=== PATIENT | female | born 1995 | race Caucasian/White ===

== ENCOUNTER 2016-10-23 12:33 | Emergency (ER) | payer OTHER ==
[2016-10-23] MEDS ORDERED: ONDANSETRON 4 MG ORAL DISINTEGRATING TAB (S0181) As Ordered ONE (14:52)
--- NOTE | 2016-10-23 15:53 | EDDOCDS ---
Physician Documentation [facility] Name: Man Rao Age: 21 yrs Sex: Female : 1995 Arrival Date: 10/23/2016 Time: 12:33 Bed PR Private MD: NO PRIMARY PHYSICIAN, . Disposition: 10/23/16 15:25 Discharged to Home/Self Care. Impression: Nausea with vomiting, unspecified, Acute pharyngitis, unspecified. - Condition is Stable. - Discharge Instructions: Nausea and Vomiting, Pharyngitis. - Prescriptions for ZOFRAN ODT 4 mg Oral - dissolve 1 tablet by ORAL route 3-4 times daily As needed do not chew, do not swallow whole; 20 tablet. - Medication Reconciliation, Local Pharmacy Hours form. - Follow up: Emergency Department; When: As needed; Reason: Worsening of conditions. [facility]; When: Call to arrange an appointment; Reason: Recheck today's complaints, Continuance of care, To establish care. - Problem is new. - Symptoms have improved. - Notes: YOUR URINE DID NOT SHOW SIGNS OF INFECTION OR TODAY. YOUR STREP TEST WAS ALSO NEGATIVE. YOU MAY HAVE A VIRAL ILLNESS THAT IS CAUSING YOUR SYMPTOMS. PLEASE FOLLOW UP WITH A PRIMARY CARE PROVIDER WITHIN THE NEXT 1-2 WEEKS. RETURN TO THE ER WITH ANY WORSENING SYMPTOMS. Historical: - Allergies: no known allergies; - Home Meds: 1. none - PMHx: none; - PSHx: Appendectomy; - Social history: Smoking status: Patient states was never smoker of tobacco. No barriers to communication noted, The patient speaks fluent Bermudian. - Family history: Not pertinent. - : The pt / caregiver states he / she is not on anticoagulants. Home medication list is obtained from the patient. - Exposure Risk Screening:: None identified. 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 3 in. (160.02 cm); Pain 5/10; 15:51 BP 105 / 58; Pulse 82; Resp 18; Temp 99.2(TE); Pulse Ox 98% on R/A; Pain 0/10; mdr 12:36 Body Mass Index 21.61 (55.34 kg, 160.02 cm) cmb MDM: 14:48 Strep Screen, Nursing ordered. dt4 14:48 UCG by Nursing ordered. dt4 14:48 Ondansetron ODT Oral Disintegrating Tablet 4 mg PO once ordered. dt4 14:49 Urinalysis Ordered. EDMS 14:49 Urine Culture Ordered. EDMS 14:57 GATS (NEGATIVE STREP SCREEN) Ordered. EDMS 15:09 Financial registration complete. Point of Care Testing: Urine : 14:56 hCG Reading: Negative; Control Reading: Positive; srm Ranges: Administered Medications: 14:54 Drug: Ondansetron ODT 4 mg [ondansetron 4 mg disintegrating tablet (1 tabs)] Route: PO; mb9 Signatures: Dispatcher [employer] Jessica Pate, ROHAN MADRIGAL [facility] Aba Melo, Reg Reg Maria C Zamora PA-C PA-C dt4 Lukas Aaron RN RN mb9 [facility]
--- NOTE | 2016-10-23 15:53 | EDDOCDS ---
Nurse's Notes [facility] Name: Man Rao Age: 21 yrs Sex: Female : 1995 Arrival Date: 10/23/2016 Time: 12:33 Bed PR1 / 25 Private MD: NO PRIMARY PHYSICIAN, . Diagnosis: Nausea with vomiting, unspecified;Acute pharyngitis, unspecified Presentation: 10/23 12:38 Presenting complaint: Patient states: "I've been sick for two weeks and I don't have [facility] health coverage so I didn't know where else to go. I've been throwing up with nausea and vomiting.". Adult Sepsis Screening: The patient does not have new or worsening altered mentation. Patient's respiratory rate is less than 22. Systolic blood pressure is greater than 100. Patient has a qSOFA score of 0- Negative Sepsis Screen. Suicide/Homicide risk assessment- the patient denies having any suicidal and/or homicidal ideations and does not present with any other emotional, behavioral or mental health complaints. Transition of care: patient was not received from another setting of care. 12:38 Acuity: BETINA Level 3 mb9 12:38 Method Of Arrival: Walkin/Carried/Asstd mb9 12:38 Status: The patient is a dependent. mb9 Triage Assessment: 12:41 General: Appears in no apparent distress, Behavior is appropriate for age, cooperative. mb9 Pain: Location: abdomen Quality of pain is described as crampy. Pt Declines HIV testing. Respiratory: Airway is patent Respiratory effort is even, unlabored. GI: Reports nausea, vomiting. 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 none - PMHx: none; - PSHx: Appendectomy; - Social history: Smoking status: Patient states was never smoker of tobacco. No barriers to communication noted, The patient speaks fluent Lebanese. - Family history: Not pertinent. - : The pt / caregiver states he / she is not on anticoagulants. Home medication list is obtained from the patient. - Exposure Risk Screening:: None identified. Screenin:50 Screening information is obtained from the patient. Fall risk: No risks identified. srm Assistance ADL's: requires no assistance with activities of daily living. Abuse/DV Screen: The patient / caregiver reports he/she is: not in a situation that causes fear, pain or injury. Nutritional screening: No deficits noted. Advance Directives: There is no active DNR order. home support is adequate. Assessment: 15:50 General: Appears in no apparent distress, Behavior is appropriate for age, cooperative. srm GI: Reports nausea. 15:50 General: PT drinking soda and eating potato chips on d/c. Neurological: No deficits srm noted. EENT: No deficits noted. Vital Signs: 12:36 BP 112 / 63; Pulse 86; Resp 16; Temp 97.7(O); Pulse Ox 98% ; Weight 55.34 kg; Height 5 cmb ft. 3 in. (160.02 cm); Pain 5/10; 15:51 BP 105 / 58; Pulse 82; Resp 18; Temp 99.2(TE); Pulse Ox 98% on R/A; Pain 0/10; mdr 12:36 Body Mass Index 21.61 (55.34 kg, 160.02 cm) cmb Vitals: 12:36 Log In Time: October 23, 2016 at 12:33. cmb 14:56 Strep Screen is obtained and tested: Negative, a GATSNEG culture is ordered in [facility] and sent. ED Course: 12:35 Patient visited by Lizzie Gagnon. cmb 12:35 NO PRIMARY PHYSICIAN, . is Private Physician. cmb 12:35 Patient moved to Waiting cmb 12:37 Patient moved to Pre RCE cmb 12:39 Triage Initiated mb9 13:42 Patient moved to Triage 1 mb9 14:28 Maria C Zamora PA-C is [facility]. dt4 14:28 Fawad Merchant MD is Attending Physician. dt4 14:28 Patient visited by Maria C Zamora PA-C. dt4 14:55 Urine Culture Sent. srm 14:55 Urinalysis Sent. srm 15:01 Patient moved to TR1 le 15:08 Patient name changed from Yorimar\\S\\\\S\\Lazar\\S\\ to Yorimar\\S\\Mykeila\\S\\Lazar. EDMS 15:25 [facility] is Referral Physician. dt4 15:39 Patient moved to PR srm 15:50 The patient / caregiver is instructed regarding the plan of care and ED course. Patient srm has correct armband on for positive identification. 15:50 No IV's were initiated during this patient's visit. No procedures done that require srm assistance. 15:52 Patient visited by Boubacar Go PCA. mdr Administered Medications: 14:54 Drug: Ondansetron ODT 4 mg [ondansetron 4 mg disintegrating tablet (1 tabs)] Route: PO; mb9 Point of Care Testing: Urine : 14:56 hCG Reading: Negative; Control Reading: Positive; [facility] Ranges: Order Results: Lab Order: Urinalysis; SPEC'M 10/23/16 14:52 Test: APPEARANCE, URINE; Value: HAZY; Range: CLEAR; Status: F Test: COLOR, URINE; Value: YELLOW; Range: YELLOW; Status: F Test: PH,URINE; Value: 6.0; Range: 5.0-9.0; Units: UNITS; Status: F Test: SPECIFIC GRAVITY URINE AUTO; Value: 1.025; Range: 1.002-1.035; Status: F Test: PROTEIN, URINE AUTO; Value: NEGATIVE; Range: NEGATIVE; Units: mg/dL; Status: F Test: GLUCOSE, URINE (UA) AUTO; Value: NEGATIVE; Range: NEGATIVE; Units: mg/dL; Status: F Test: KETONE, URINE AUTO; Value: NEGATIVE; Range: NEGATIVE; Units: mg/dL; Status: F Test: UROBILINOGEN, URINE AUTO; Value: 0.2; Range: 0.0-2.0; Units: mg/dL; Status: F Test: BILIRUBIN, URINE AUTO; Value: NEGATIVE; Range: NEGATIVE; Status: F Test: NITRITE, URINE AUTO; Value: NEGATIVE; Range: NEGATIVE; Status: F Test: LEUKOCYTE ESTERASE, URINE AUTO; Value: NEGATIVE; Range: NEGATIVE; Status: F Test: BLOOD, URINE BLOOD; Value: NEGATIVE; Range: NEGATIVE; Status: F Test: WBC, URINE AUTO; Value: 3; Range: 0-3; Units: /HPF; Status: F Test: RBC, URINE AUTO; Value: 6; Range: 0-3; Abnormal: Above high normal; Units: /HPF; Status: F Test: BACTERIA, URINE AUTO; Value: NEGATIVE; Range: NEGATIVE; Status: F Test: SQUAMOUS EPITHELIAL CELL UR AU; Value: 6; Range: 0-6; Units: /HPF; Status: F Test: MUCUS, URINE; Value: SMALL; Range: NEGATIVE; Status: F Test: HYALINE CAST, URINE AUTO; Value: 0; Range: 0-1; Units: /LPF; Status: F Test: AMORPHOUS SEDIMENT; Value: SMALL; Range: NEGATIVE; Abnormal: Above high normal; Status: F Outcome: 15:25 Discharge ordered by Provider. dt4 15:50 Discharge Assessment: Patient awake, alert and oriented x 3. No cognitive and/or srm functional deficits noted. Patient verbalized understanding of disposition instructions. patient administered narcotics - no. The following High Risk Discharge criteria are identified: None. Discharged to home ambulatory. Condition: good. Discharge instructions given to patient, Instructed on discharge instructions, follow up and referral plans. medication usage, diet, Demonstrated understanding of instructions, medications, Pt was receptive of discharge instructions/ teaching. Prescriptions given X 1. No special radiology studies were completed. Property sent home with patient. 15:52 Patient left the ED. srm Signatures: Dispatcher MedHost EDMS Jessica Dhillon RN RN srm Bee Malone, STEAMBOAT PILOT STEAMBOAT PILOTLizzie Garcia cmb Maria C Zamora, PA-C PA-C dt4 Lukas Aaron RN RN mb9 Boubacar Go, SAMANTHA CLEANER WINDOW mdr Corrections: (The following items were deleted from the chart) 12:39 12:38 Status: Patient is not a kosher dietary service supervisor or dependent. mb9 mb9 MTDD
--- NOTE | 2016-10-25 16:53 | EDDOCDS ---
Physician Documentation [facility] Name: Man Rao Age: 21 yrs Sex: Female : 1995 Arrival Date: 10/23/2016 Time: 12:33 Bed PR Private MD: NO PRIMARY PHYSICIAN, . Disposition: 10/23/16 15:25 Discharged to Home/Self Care. Impression: Nausea with vomiting, unspecified, Acute pharyngitis, unspecified. - Condition is Stable. - Discharge Instructions: Nausea and Vomiting, Pharyngitis. - Prescriptions for ZOFRAN ODT 4 mg Oral - dissolve 1 tablet by ORAL route 3-4 times daily As needed do not chew, do not swallow whole; 20 tablet. - Medication Reconciliation, Local Pharmacy Hours form. - Follow up: Emergency Department; When: As needed; Reason: Worsening of conditions. Follow [facility]: [facility]; When: Call to arrange an appointment; Reason: Recheck today's complaints, Continuance of care, To establish care. - Problem is new. - Symptoms have improved. - Notes: YOUR URINE DID NOT SHOW SIGNS OF INFECTION OR TODAY. YOUR STREP TEST WAS ALSO NEGATIVE. YOU MAY HAVE A VIRAL ILLNESS THAT IS CAUSING YOUR SYMPTOMS. PLEASE FOLLOW UP WITH A PRIMARY CARE PROVIDER WITHIN THE NEXT 1-2 WEEKS. RETURN TO THE ER WITH ANY WORSENING SYMPTOMS. Historical: - Allergies: no known allergies; - Home Meds: 1. none - PMHx: none; - PSHx: Appendectomy; - Social history: Smoking status: Patient states was never smoker of tobacco. No barriers to communication noted, The patient speaks fluent Turkmen. - Family history: Not pertinent. - : The pt / caregiver states he / she is not on anticoagulants. Home medication list is obtained from the patient. - Exposure Risk Screening:: None identified. 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 3 in. (160.02 cm); Pain 5/10; 15:51 BP 105 / 58; Pulse 82; Resp 18; Temp 99.2(TE); Pulse Ox 98% on R/A; Pain 0/10; mdr 12:36 Body Mass Index 21.61 (55.34 kg, 160.02 cm) cmb MDM: 14:48 Strep Screen, Nursing ordered. dt4 14:48 UCG by Nursing ordered. dt4 14:48 Ondansetron ODT Oral Disintegrating Tablet 4 mg PO once ordered. dt4 14:49 Urinalysis Ordered. EDMS 14:49 Urine Culture Ordered. EDMS 14:57 GATS (NEGATIVE STREP SCREEN) Ordered. EDMS 15:09 Financial registration complete. lg 10/24 10:57 T-Sheet-- Draft Copy was scanned into [employer] and attached to record. Point of Care Testing: Urine : 10/23 14:56 hCG Reading: Negative; Control Reading: Positive; srm Ranges: Administered Medications: 14:54 Drug: Ondansetron ODT 4 mg [ondansetron 4 mg disintegrating tablet (1 tabs)] Route: PO; mb9 Signatures: Dispatcher [employer]Host EDMS Jessica Dhillon, RN RN srm Bindu Alexandra, Reg Reg gb Aba Melo, Reg Reg lg Maria C Zamora, PA-C PA-C dt4 Lukas AaronRN RN mb9 The chart was reviewed and I authenticate all verbal orders and agree with the evaluation and treatment provided.Attachments: 10/24 10:57 T-Sheet-- Draft Copy Chart Complete MTDD
--- NOTE | 2016-10-25 16:53 | EDDOCDS ---
Nurse's Notes [facility] Name: Man Rao Age: 21 yrs Sex: Female : 1995 Arrival Date: 10/23/2016 Time: 12:33 Bed PR1 / 25 Private MD: NO PRIMARY PHYSICIAN, . Diagnosis: Nausea with vomiting, unspecified;Acute pharyngitis, unspecified Presentation: 10/23 12:38 Presenting complaint: Patient states: "I've been sick for two weeks and I don't have [facility] health coverage so I didn't know where else to go. I've been throwing up with nausea and vomiting.". Adult Sepsis Screening: The patient does not have new or worsening altered mentation. Patient's respiratory rate is less than 22. Systolic blood pressure is greater than 100. Patient has a qSOFA score of 0- Negative Sepsis Screen. Suicide/Homicide risk assessment- the patient denies having any suicidal and/or homicidal ideations and does not present with any other emotional, behavioral or mental health complaints. Transition of care: patient was not received from another setting of care. 12:38 Acuity: BETINA Level 3 mb9 12:38 Method Of Arrival: Walkin/Carried/Asstd mb9 12:38 Status: The patient is a dependent. mb9 Triage Assessment: 12:41 General: Appears in no apparent distress, Behavior is appropriate for age, cooperative. mb9 Pain: Location: abdomen Quality of pain is described as crampy. Pt Declines HIV testing. Respiratory: Airway is patent Respiratory effort is even, unlabored. GI: Reports nausea, vomiting. 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 none - PMHx: none; - PSHx: Appendectomy; - Social history: Smoking status: Patient states was never smoker of tobacco. No barriers to communication noted, The patient speaks fluent Bahraini. - Family history: Not pertinent. - : The pt / caregiver states he / she is not on anticoagulants. Home medication list is obtained from the patient. - Exposure Risk Screening:: None identified. Screenin:50 Screening information is obtained from the patient. Fall risk: No risks identified. srm Assistance ADL's: requires no assistance with activities of daily living. Abuse/DV Screen: The patient / caregiver reports he/she is: not in a situation that causes fear, pain or injury. Nutritional screening: No deficits noted. Advance Directives: There is no active DNR order. home support is adequate. Assessment: 15:50 General: Appears in no apparent distress, Behavior is appropriate for age, cooperative. srm GI: Reports nausea. 15:50 General: PT drinking soda and eating potato chips on d/c. Neurological: No deficits srm noted. EENT: No deficits noted. Vital Signs: 12:36 BP 112 / 63; Pulse 86; Resp 16; Temp 97.7(O); Pulse Ox 98% ; Weight 55.34 kg; Height 5 cmb ft. 3 in. (160.02 cm); Pain 5/10; 15:51 BP 105 / 58; Pulse 82; Resp 18; Temp 99.2(TE); Pulse Ox 98% on R/A; Pain 0/10; mdr 12:36 Body Mass Index 21.61 (55.34 kg, 160.02 cm) cmb Vitals: 12:36 Log In Time: October 23, 2016 at 12:33. cmb 14:56 Strep Screen is obtained and tested: Negative, a GATSNEG culture is ordered in [facility] and sent. ED Course: 12:35 Patient visited by Lizzie Gagnon. cmb 12:35 NO PRIMARY PHYSICIAN, . is Private Physician. cmb 12:35 Patient moved to Waiting cmb 12:37 Patient moved to Pre RCE cmb 12:39 Triage Initiated mb9 13:42 Patient moved to Triage 1 mb9 14:28 Maria C Zamora PA-C is [facility]. dt4 14:28 Fawad Merchant MD is Attending Physician. dt4 14:28 Patient visited by Maria C Zamora PA-C. dt4 14:55 Urine Culture Sent. srm 14:55 Urinalysis Sent. srm 15:01 Patient moved to TR1 le 15:08 Patient name changed from Yorimar\\S\\\\S\\Lazar\\S\\ to Yorimar\\S\\Mykeila\\S\\Lazar. EDMS 15:25 [facility] is Referral Physician. dt4 15:39 Patient moved to PR srm 15:50 The patient / caregiver is instructed regarding the plan of care and ED course. Patient srm has correct armband on for positive identification. 15:50 No IV's were initiated during this patient's visit. No procedures done that require srm assistance. 15:52 Patient visited by Boubacar Go PCA. mdr 10/24 10:57 T-Sheet-- Draft Copy was scanned into [facility] and attached to record. gb Administered Medications: 10/23 14:54 Drug: Ondansetron ODT 4 mg [ondansetron 4 mg disintegrating tablet (1 tabs)] Route: PO; mb9 Point of Care Testing: Urine : 14:56 hCG Reading: Negative; Control Reading: Positive; srm Ranges: Order Results: Lab Order: Urinalysis; SPEC'M 10/23/16 14:52 Test: APPEARANCE, URINE; Value: HAZY; Range: CLEAR; Status: F Test: COLOR, URINE; Value: YELLOW; Range: YELLOW; Status: F Test: PH,URINE; Value: 6.0; Range: 5.0-9.0; Units: UNITS; Status: F Test: SPECIFIC GRAVITY URINE AUTO; Value: 1.025; Range: 1.002-1.035; Status: F Test: PROTEIN, URINE AUTO; Value: NEGATIVE; Range: NEGATIVE; Units: mg/dL; Status: F Test: GLUCOSE, URINE (UA) AUTO; Value: NEGATIVE; Range: NEGATIVE; Units: mg/dL; Status: F Test: KETONE, URINE AUTO; Value: NEGATIVE; Range: NEGATIVE; Units: mg/dL; Status: F Test: UROBILINOGEN, URINE AUTO; Value: 0.2; Range: 0.0-2.0; Units: mg/dL; Status: F Test: BILIRUBIN, URINE AUTO; Value: NEGATIVE; Range: NEGATIVE; Status: F Test: NITRITE, URINE AUTO; Value: NEGATIVE; Range: NEGATIVE; Status: F Test: LEUKOCYTE ESTERASE, URINE AUTO; Value: NEGATIVE; Range: NEGATIVE; Status: F Test: BLOOD, URINE BLOOD; Value: NEGATIVE; Range: NEGATIVE; Status: F Test: WBC, URINE AUTO; Value: 3; Range: 0-3; Units: /HPF; Status: F Test: RBC, URINE AUTO; Value: 6; Range: 0-3; Abnormal: Above high normal; Units: /HPF; Status: F Test: BACTERIA, URINE AUTO; Value: NEGATIVE; Range: NEGATIVE; Status: F Test: SQUAMOUS EPITHELIAL CELL UR AU; Value: 6; Range: 0-6; Units: /HPF; Status: F Test: MUCUS, URINE; Value: SMALL; Range: NEGATIVE; Status: F Test: HYALINE CAST, URINE AUTO; Value: 0; Range: 0-1; Units: /LPF; Status: F Test: AMORPHOUS SEDIMENT; Value: SMALL; Range: NEGATIVE; Abnormal: Above high normal; Status: F Lab Order: Urine Culture; SPEC'M 10/23/16 14:52 Test: URINE CULTURE; Value: URINE CULTURE RESULT NO GROWTH CLINICAL SIGNIFICANCE 1 ORGANISM; Status: F Lab Order: GATS (NEGATIVE STREP SCREEN); SPEC'M 10/23/16 14:51 Test: GATS CULTURE (NEG STREP SCR); Value: GATS RESULT NEGATIVE FOR STREP PYOGENES (GROUP A); Status: F Outcome: 15:25 Discharge ordered by Provider. dt4 15:50 Discharge Assessment: Patient awake, alert and oriented x 3. No cognitive and/or srm functional deficits noted. Patient verbalized understanding of disposition instructions. patient administered narcotics - no. The following High Risk Discharge criteria are identified: None. Discharged to home ambulatory. Condition: good. Discharge instructions given to patient, Instructed on discharge instructions, follow up and referral plans. medication usage, diet, Demonstrated understanding of instructions, medications, Pt was receptive of discharge instructions/ teaching. Prescriptions given X 1. No special radiology studies were completed. Property sent home with patient. 15:52 Patient left the ED. srm Signatures: Dispatcher [employer] EDMS Jessica Dhillon RN RN srm Bindu Alexandra, Reg Reg gb Bee Mlaone, PRIMER CHARGING TOOL SETTER PRIMER CHARGING TOOL SETTER Lizzie Gomez Diane, PA-C PA-C dt4 Lukas Aaron RN RN [id number] Boubacar Go, SAMANTHA DIVIDER OPERATOR mdr Corrections: (The following items were deleted from the chart) 12:39 12:38 Status: Patient is not a financial services specialist or dependent. mb9 mb9 Chart Complete MTDD
--- NOTE | 2016-10-25 16:53 | EDDOCDS ---
Physician Documentation [facility] Name: Man Rao Age: 21 yrs Sex: Female : 1995 Arrival Date: 10/23/2016 Time: 12:33 Bed PR Private MD: NO PRIMARY PHYSICIAN, . Disposition: 10/23/16 15:25 Discharged to Home/Self Care. Impression: Nausea with vomiting, unspecified, Acute pharyngitis, unspecified. - Condition is Stable. - Discharge Instructions: Nausea and Vomiting, Pharyngitis. - Prescriptions for ZOFRAN ODT 4 mg Oral - dissolve 1 tablet by ORAL route 3-4 times daily As needed do not chew, do not swallow whole; 20 tablet. - Medication Reconciliation, Local Pharmacy Hours form. - Follow up: Emergency Department; When: As needed; Reason: Worsening of conditions. Follow [facility]: [facility]; When: Call to arrange an appointment; Reason: Recheck today's complaints, Continuance of care, To establish care. - Problem is new. - Symptoms have improved. - Notes: YOUR URINE DID NOT SHOW SIGNS OF INFECTION OR TODAY. YOUR STREP TEST WAS ALSO NEGATIVE. YOU MAY HAVE A VIRAL ILLNESS THAT IS CAUSING YOUR SYMPTOMS. PLEASE FOLLOW UP WITH A PRIMARY CARE PROVIDER WITHIN THE NEXT 1-2 WEEKS. RETURN TO THE ER WITH ANY WORSENING SYMPTOMS. Historical: - Allergies: no known allergies; - Home Meds: 1. none - PMHx: none; - PSHx: Appendectomy; - Social history: Smoking status: Patient states was never smoker of tobacco. No barriers to communication noted, The patient speaks fluent Wallisian. - Family history: Not pertinent. - : The pt / caregiver states he / she is not on anticoagulants. Home medication list is obtained from the patient. - Exposure Risk Screening:: None identified. 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 3 in. (160.02 cm); Pain 5/10; 15:51 BP 105 / 58; Pulse 82; Resp 18; Temp 99.2(TE); Pulse Ox 98% on R/A; Pain 0/10; mdr 12:36 Body Mass Index 21.61 (55.34 kg, 160.02 cm) cmb MDM: 14:48 Strep Screen, Nursing ordered. dt4 14:48 UCG by Nursing ordered. dt4 14:48 Ondansetron ODT Oral Disintegrating Tablet 4 mg PO once ordered. dt4 14:49 Urinalysis Ordered. EDMS 14:49 Urine Culture Ordered. EDMS 14:57 GATS (NEGATIVE STREP SCREEN) Ordered. EDMS 15:09 Financial registration complete. lg 10/24 10:57 T-Sheet-- Draft Copy was scanned into [employer] and attached to record. Point of Care Testing: Urine : 10/23 14:56 hCG Reading: Negative; Control Reading: Positive; srm Ranges: Administered Medications: 14:54 Drug: Ondansetron ODT 4 mg [ondansetron 4 mg disintegrating tablet (1 tabs)] Route: PO; mb9 Signatures: Dispatcher [employer] EDMS Jessica Dhillon, RN RN srm Bindu Alexandra, Reg Reg gb Aba Melo, Reg Reg lg Maria C Zamora, PA-C PA-C dt4 Lukas AaronRN RN mb9 The chart was reviewed and I authenticate all verbal orders and agree with the evaluation and treatment provided.Attachments: 10/24 10:57 T-Sheet-- Draft Copy Chart Complete MTDD
--- NOTE | 2016-10-26 12:16 | EDDOCDS ---
Physician Documentation [facility] Name: Man Rao Age: 21 yrs Sex: Female : 1995 Arrival Date: 10/23/2016 Time: 12:33 Bed PR Private MD: NO PRIMARY PHYSICIAN, . Disposition: 10/23/16 15:25 Discharged to Home/Self Care. Impression: Nausea with vomiting, unspecified, Acute pharyngitis, unspecified. - Condition is Stable. - Discharge Instructions: Nausea and Vomiting, Pharyngitis. - Prescriptions for ZOFRAN ODT 4 mg Oral - dissolve 1 tablet by ORAL route 3-4 times daily As needed do not chew, do not swallow whole; 20 tablet. - Medication Reconciliation, Local Pharmacy Hours form. - Follow up: Emergency Department; When: As needed; Reason: Worsening of conditions. [facility]; When: Call to arrange an appointment; Reason: Recheck today's complaints, Continuance of care, To establish care. - Problem is new. - Symptoms have improved. - Notes: YOUR URINE DID NOT SHOW SIGNS OF INFECTION OR TODAY. YOUR STREP TEST WAS ALSO NEGATIVE. YOU MAY HAVE A VIRAL ILLNESS THAT IS CAUSING YOUR SYMPTOMS. PLEASE FOLLOW UP WITH A PRIMARY CARE PROVIDER WITHIN THE NEXT 1-2 WEEKS. RETURN TO THE ER WITH ANY WORSENING SYMPTOMS. Historical: - Allergies: no known allergies; - Home Meds: 1. none - PMHx: none; - PSHx: Appendectomy; - Social history: Smoking status: Patient states was never smoker of tobacco. No barriers to communication noted, The patient speaks fluent German. - Family history: Not pertinent. - : The pt / caregiver states he / she is not on anticoagulants. Home medication list is obtained from the patient. - Exposure Risk Screening:: None identified. 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 3 in. (160.02 cm); Pain 5/10; 15:51 BP 105 / 58; Pulse 82; Resp 18; Temp 99.2(TE); Pulse Ox 98% on R/A; Pain 0/10; mdr 12:36 Body Mass Index 21.61 (55.34 kg, 160.02 cm) cmb MDM: 14:48 Strep Screen, Nursing ordered. dt4 14:48 UCG by Nursing ordered. dt4 14:48 Ondansetron ODT Oral Disintegrating Tablet 4 mg PO once ordered. dt4 14:49 Urinalysis Ordered. EDMS 14:49 Urine Culture Ordered. EDMS 14:57 GATS (NEGATIVE STREP SCREEN) Ordered. EDMS 15:09 Financial registration complete. lg 10/24 10:57 T-Sheet-- Draft Copy was scanned into [employer] and attached to record. Point of Care Testing: Urine : 10/23 14:56 hCG Reading: Negative; Control Reading: Positive; srm Ranges: Administered Medications: 14:54 Drug: Ondansetron ODT 4 mg [ondansetron 4 mg disintegrating tablet (1 tabs)] Route: PO; mb9 Signatures: Dispatcher [employer] EDMS Jessica Dhillon, RN RN srm Bindu Alexandra, Reg Reg gb Aba Melo, Reg Reg lg Maria C Zamora, PA-C PA-C dt4 Lukas AaronRN RN mb9 The chart was reviewed and I authenticate all verbal orders and agree with the evaluation and treatment provided.Attachments: 10/24 10:57 T-Sheet-- Draft Copy Chart Complete MTDD
--- NOTE | 2016-10-26 12:16 | EDDOCDS ---
Nurse's Notes [facility] Name: Man Rao Age: 21 yrs Sex: Female : 1995 Arrival Date: 10/23/2016 Time: 12:33 Bed PR1 / 25 Private MD: NO PRIMARY PHYSICIAN, . Diagnosis: Nausea with vomiting, unspecified;Acute pharyngitis, unspecified Presentation: 10/23 12:38 Presenting complaint: Patient states: "I've been sick for two weeks and I don't have [facility] coverage so I didn't know where else to go. I've been throwing up with nausea and vomiting.". Adult Sepsis Screening: The patient does not have new or worsening altered mentation. Patient's respiratory rate is less than 22. Systolic blood pressure is greater than 100. Patient has a qSOFA score of 0- Negative Sepsis Screen. Suicide/Homicide risk assessment- the patient denies having any suicidal and/or homicidal ideations and does not present with any other emotional, behavioral or mental health complaints. Transition of care: patient was not received from another setting of care. 12:38 Acuity: BETINA Level 3 mb9 12:38 Method Of Arrival: Walkin/Carried/Asstd mb9 12:38 Status: The patient is a dependent. mb9 Triage Assessment: 12:41 General: Appears in no apparent distress, Behavior is appropriate for age, cooperative. mb9 Pain: Location: abdomen Quality of pain is described as crampy. Pt Declines HIV testing. Respiratory: Airway is patent Respiratory effort is even, unlabored. GI: Reports nausea, vomiting. 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 none - PMHx: none; - PSHx: Appendectomy; - Social history: Smoking status: Patient states was never smoker of tobacco. No barriers to communication noted, The patient speaks fluent Guyanese. - Family history: Not pertinent. - : The pt / caregiver states he / she is not on anticoagulants. Home medication list is obtained from the patient. - Exposure Risk Screening:: None identified. Screenin:50 Screening information is obtained from the patient. Fall risk: No risks identified. srm Assistance ADL's: requires no assistance with activities of daily living. Abuse/DV Screen: The patient / caregiver reports he/she is: not in a situation that causes fear, pain or injury. Nutritional screening: No deficits noted. Advance Directives: There is no active DNR order. home support is adequate. Assessment: 15:50 General: Appears in no apparent distress, Behavior is appropriate for age, cooperative. srm GI: Reports nausea. 15:50 General: PT drinking soda and eating potato chips on d/c. Neurological: No deficits srm noted. EENT: No deficits noted. Vital Signs: 12:36 BP 112 / 63; Pulse 86; Resp 16; Temp 97.7(O); Pulse Ox 98% ; Weight 55.34 kg; Height 5 cmb ft. 3 in. (160.02 cm); Pain 5/10; 15:51 BP 105 / 58; Pulse 82; Resp 18; Temp 99.2(TE); Pulse Ox 98% on R/A; Pain 0/10; mdr 12:36 Body Mass Index 21.61 (55.34 kg, 160.02 cm) cmb Vitals: 12:36 Log In Time: October 23, 2016 at 12:33. cmb 14:56 Strep Screen is obtained and tested: Negative, a GATSNEG culture is ordered in [facility] and sent. ED Course: 12:35 Patient visited by Lizzie Gagnon. cmb 12:35 NO PRIMARY PHYSICIAN, . is Private Physician. cmb 12:35 Patient moved to Waiting cmb 12:37 Patient moved to Pre RCE cmb 12:39 Triage Initiated mb9 13:42 Patient moved to Triage 1 mb9 14:28 [facility] C [facility]. dt4 14:28 Fawad Merchant MD is Attending Physician. dt4 14:28 Patient visited by Maria C Zamora PA-C. dt4 14:55 Urine Culture Sent. srm 14:55 Urinalysis Sent. srm 15:01 Patient moved to TR1 le 15:08 Patient name changed from Yorimar\\S\\\\S\\Lazar\\S\\ to Yorimar\\S\\Mykeila\\S\\Lazar. EDMS 15:25 [facility] is Referral Physician. dt4 15:39 Patient moved to PR srm 15:50 The patient / caregiver is instructed regarding the plan of care and ED course. Patient srm has correct armband on for positive identification. 15:50 No IV's were initiated during this patient's visit. No procedures done that require srm assistance. 15:52 Patient visited by Boubacar Go PCA. mdr 10/24 10:57 T-Sheet-- Draft Copy was scanned into [employer] and attached to record. gb Administered Medications: 10/23 14:54 Drug: Ondansetron ODT 4 mg [ondansetron 4 mg disintegrating tablet (1 tabs)] Route: PO; mb9 Point of Care Testing: Urine : 14:56 hCG Reading: Negative; Control Reading: Positive; srm Ranges: Order Results: Lab Order: Urinalysis; SPEC'M 10/23/16 14:52 Test: APPEARANCE, URINE; Value: HAZY; Range: CLEAR; Status: F Test: COLOR, URINE; Value: YELLOW; Range: YELLOW; Status: F Test: PH,URINE; Value: 6.0; Range: 5.0-9.0; Units: UNITS; Status: F Test: SPECIFIC GRAVITY URINE AUTO; Value: 1.025; Range: 1.002-1.035; Status: F Test: PROTEIN, URINE AUTO; Value: NEGATIVE; Range: NEGATIVE; Units: mg/dL; Status: F Test: GLUCOSE, URINE (UA) AUTO; Value: NEGATIVE; Range: NEGATIVE; Units: mg/dL; Status: F Test: KETONE, URINE AUTO; Value: NEGATIVE; Range: NEGATIVE; Units: mg/dL; Status: F Test: UROBILINOGEN, URINE AUTO; Value: 0.2; Range: 0.0-2.0; Units: mg/dL; Status: F Test: BILIRUBIN, URINE AUTO; Value: NEGATIVE; Range: NEGATIVE; Status: F Test: NITRITE, URINE AUTO; Value: NEGATIVE; Range: NEGATIVE; Status: F Test: LEUKOCYTE ESTERASE, URINE AUTO; Value: NEGATIVE; Range: NEGATIVE; Status: F Test: BLOOD, URINE BLOOD; Value: NEGATIVE; Range: NEGATIVE; Status: F Test: WBC, URINE AUTO; Value: 3; Range: 0-3; Units: /HPF; Status: F Test: RBC, URINE AUTO; Value: 6; Range: 0-3; Abnormal: Above high normal; Units: /HPF; Status: F Test: BACTERIA, URINE AUTO; Value: NEGATIVE; Range: NEGATIVE; Status: F Test: SQUAMOUS EPITHELIAL CELL UR AU; Value: 6; Range: 0-6; Units: /HPF; Status: F Test: MUCUS, URINE; Value: SMALL; Range: NEGATIVE; Status: F Test: HYALINE CAST, URINE AUTO; Value: 0; Range: 0-1; Units: /LPF; Status: F Test: AMORPHOUS SEDIMENT; Value: SMALL; Range: NEGATIVE; Abnormal: Above high normal; Status: F Lab Order: Urine Culture; SPEC'M 10/23/16 14:52 Test: URINE CULTURE; Value: URINE CULTURE RESULT NO GROWTH CLINICAL SIGNIFICANCE 1 ORGANISM; Status: F Lab Order: GATS (NEGATIVE STREP SCREEN); SPEC'M 10/23/16 14:51 Test: GATS CULTURE (NEG STREP SCR); Value: GATS RESULT NEGATIVE FOR STREP PYOGENES (GROUP A); Status: F Outcome: 15:25 Discharge ordered by Provider. dt4 15:50 Discharge Assessment: Patient awake, alert and oriented x 3. No cognitive and/or srm functional deficits noted. Patient verbalized understanding of disposition instructions. patient administered narcotics - no. The following High Risk Discharge criteria are identified: None. Discharged to home ambulatory. Condition: good. Discharge instructions given to patient, Instructed on discharge instructions, follow up and referral plans. medication usage, diet, Demonstrated understanding of instructions, medications, Pt was receptive of discharge instructions/ teaching. Prescriptions given X 1. No special radiology studies were completed. Property sent home with patient. 15:52 Patient left the ED. 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 mb9 mb9 Chart Complete MTDD
--- NOTE | 2016-10-26 12:16 | EDDOCDS ---
Physician Documentation [facility] Name: Man Rao Age: 21 yrs Sex: Female : 1995 Arrival Date: 10/23/2016 Time: 12:33 Bed PR Private MD: NO PRIMARY PHYSICIAN, . Disposition: 10/23/16 15:25 Discharged to Home/Self Care. Impression: Nausea with vomiting, unspecified, Acute pharyngitis, unspecified. - Condition is Stable. - Discharge Instructions: Nausea and Vomiting, Pharyngitis. - Prescriptions for ZOFRAN ODT 4 mg Oral - dissolve 1 tablet by ORAL route 3-4 times daily As needed do not chew, do not swallow whole; 20 tablet. - Medication Reconciliation, Local Pharmacy Hours form. - Follow up: Emergency Department; When: As needed; Reason: Worsening of conditions. [facility]; When: Call to arrange an appointment; Reason: Recheck today's complaints, Continuance of care, To establish care. - Problem is new. - Symptoms have improved. - Notes: YOUR URINE DID NOT SHOW SIGNS OF INFECTION OR TODAY. YOUR STREP TEST WAS ALSO NEGATIVE. YOU MAY HAVE A VIRAL ILLNESS THAT IS CAUSING YOUR SYMPTOMS. PLEASE FOLLOW UP WITH A PRIMARY CARE PROVIDER WITHIN THE NEXT 1-2 WEEKS. RETURN TO THE ER WITH ANY WORSENING SYMPTOMS. Historical: - Allergies: no known allergies; - Home Meds: 1. none - PMHx: none; - PSHx: Appendectomy; - Social history: Smoking status: Patient states was never smoker of tobacco. No barriers to communication noted, The patient speaks fluent Namibian. - Family history: Not pertinent. - : The pt / caregiver states he / she is not on anticoagulants. Home medication list is obtained from the patient. - Exposure Risk Screening:: None identified. 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 3 in. (160.02 cm); Pain 5/10; 15:51 BP 105 / 58; Pulse 82; Resp 18; Temp 99.2(TE); Pulse Ox 98% on R/A; Pain 0/10; mdr 12:36 Body Mass Index 21.61 (55.34 kg, 160.02 cm) cmb MDM: 14:48 Strep Screen, Nursing ordered. dt4 14:48 UCG by Nursing ordered. dt4 14:48 Ondansetron ODT Oral Disintegrating Tablet 4 mg PO once ordered. dt4 14:49 Urinalysis Ordered. EDMS 14:49 Urine Culture Ordered. EDMS 14:57 GATS (NEGATIVE STREP SCREEN) Ordered. EDMS 15:09 Financial registration complete. lg 10/24 10:57 T-Sheet-- Draft Copy was scanned into [id number] and attached to record. Point of Care Testing: Urine : 10/23 14:56 hCG Reading: Negative; Control Reading: Positive; srm Ranges: Administered Medications: 14:54 Drug: Ondansetron ODT 4 mg [ondansetron 4 mg disintegrating tablet (1 tabs)] Route: PO; mb9 Signatures: Dispatcher [employer] EDMS Jessica Dhillon, RN RN srm Bindu Alexandra, Reg Reg gb Aba Melo, Reg Reg lg Maria C Zamora, PA-C PA-C dt4 Lukas AaronRN RN mb9 The chart was reviewed and I authenticate all verbal orders and agree with the evaluation and treatment provided.Attachments: 10/24 10:57 T-Sheet-- Draft Copy Chart Complete MTDD
== END 2016-10-23 15:52 | disposition home or self-care (01) ==
LOC: M ED 12:33
DX: R11.2 Nausea with vomiting, unspecified (principal); J02.9 Acute pharyngitis, unspecified

== ENCOUNTER 2016-10-27 23:12 | Emergency (ER) | payer OTHER ==
[2016-10-28] MEDS ORDERED: METOCLOPRAMIDE INJ 10MG/2ML VIAL (J2765) As Ordered ONE (00:19)
[2016-10-28 00:32] LABS: BASO % 0.5 % (0.0-1.0); EOS # 0.2 K/mm3 (0.0-0.50); EOS % 2.7 % (0.0-3.0); LARGE UNSTAINED CELL # 0.2 K/mm3 (0.0-0.4); LYMPH # 2.8 K/mm3 (1.5-6.5); LYMPH % 37.7 % (24.0-44.0); MEAN CORPUSCULAR HEMOGLOBIN 30.7 pg (27.0-33.0); MEAN CORPUSCULAR HGB CONC 35.3 g/dl (32.0-36.5); MEAN CORPUSCULAR VOLUME 86.9 fl (80.0-96.0); MONO # 0.5 K/mm3 (0.0-0.8); MONO % 6.2 % (0.0-5.0); NEUTROPHILS # 3.8 K/mm3 (1.8-7.7); NEUTROPHILS % 50.9 % (36.0-66.0); PLATELET COUNT, AUTOMATED 299 k/mm3 (150-450); WHITE BLOOD COUNT 7.5 K/mm3 (4.0-10.0)
[2016-10-28 00:45] LABS: CONTROL LINE HCG INT CTR LINE PRESENT
[2016-10-28 00:53] LABS: ALBUMIN 3.9 GM/DL (3.2-5.2); ALBUMIN/GLOBULIN RATIO 1.03 (1.00-1.93); ALKALINE PHOSPHATASE 57 U/L (45-117); ALT/SGPT 12 U/L (12-78); AMYLASE 61 U/L (25-115); ANION GAP 6 MEQ/L (8-16); AST/SGOT 20 U/L (15-37); BILIRUBIN,DIRECT < 0.1 MG/DL (0.0-0.2); BILIRUBIN,TOTAL 0.1 MG/DL (0.2-1.0); BLOOD UREA NITROGEN 15 MG/DL (7-18); CALCIUM LEVEL 8.7 MG/DL (8.5-10.1); CARBON DIOXIDE LEVEL 29 MEQ/L (21-32); CHLORIDE LEVEL 106 MEQ/L (98-107); CREATININE FOR GFR 0.67 MG/DL (0.55-1.02); GLUCOSE, FASTING 92 MG/DL (70-105); POTASSIUM SERUM 3.7 MEQ/L (3.5-5.1); SODIUM LEVEL 141 MEQ/L (136-145); TOTAL PROTEIN 7.7 GM/DL (6.4-8.2)
--- NOTE | 2016-10-28 01:28 | EDDOCDS ---
Nurse's Notes [facility] Name: Man Rao Age: 21 yrs Sex: Female : 1995 Arrival Date: 10/27/2016 Time: 23:12 Bed 7 Private MD: NO PRIMARY PHYSICIAN, . Diagnosis: Noninfective gastroenteritis and colitis, unspecified Presentation: 10/27 23:16 Presenting complaint: Patient states: Was seen here last week for Nausea and vomiting. kmg1 Abdominal cramping. Risk factors: the patient reports a small or scant amount of vaginal bleeding. Adult Sepsis Screening: The patient does not have new or worsening altered mentation. Patient's respiratory rate is less than 22. Systolic blood pressure is greater than 100. Patient has a qSOFA score of 0- Negative Sepsis Screen. Suicide/Homicide risk assessment- the patient denies having any suicidal and/or homicidal ideations and does not present with any other emotional, behavioral or mental health complaints. Status: The patient is a dependent. Transition of care: patient was not received from another setting of care. 23:16 Acuity: BETINA Level 3 km 23:16 Method Of Arrival: Walkin/Carried/Asstd km Triage Assessment: 23:19 General: Appears in no apparent distress, comfortable, Behavior is appropriate for age, kmg1 cooperative, pleasant. Pain: Location: suprapubic area and left lower quadrant Pain currently is 6 out of 10 on a pain scale. Quality of pain is described as crampy, sharp. HIV screening NA for this visit Offered previously. GI: Reports cramping, lower abdominal pain, nausea, vomiting. : Reports vaginal bleeding that is spotty. 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 Zofran (as hydrochloride) 4 mg Oral tab 1 tabs every 8 hours (Last dose: 10/26/2016) - PMHx: none; - PSHx: Appendectomy; - Social history: Smoking status: Patient states was never smoker of tobacco. No barriers to communication noted, The patient speaks fluent Occitan, Speaks appropriately for age. - Family history: Not pertinent. - : The pt / caregiver states he / she is not on anticoagulants. Home medication list is obtained from the patient. - Exposure Risk Screening:: None identified. Screenin/22 01:25 Screening information is obtained from the patient. Fall risk: No risks identified. js15 Assistance ADL's: requires no assistance with activities of daily living. Abuse/DV Screen: The patient / caregiver reports he/she is: not in a situation that causes fear, pain or injury. Nutritional screening: No deficits noted. Advance Directives: There is no active DNR order. home support is adequate. Assessment: 00:15 General: Appears in no apparent distress, Behavior is appropriate for age, cooperative. js15 Pain: Location: suprapubic area Quality of pain is described as crampy. Neurological: Level of Consciousness is awake, alert, obeys commands, Oriented to person, place, time. Respiratory: Airway is patent Respiratory effort is even, unlabored, Respiratory pattern is regular, symmetrical. GI: Abdomen is flat, Bowel sounds present X 4 quads. Abd is soft and non tender X 4 quads. Derm: Skin is pink, warm & dry. 01:25 Reassessment: Patient appears in no apparent distress at this time. Patient denies pain js15 at this time. Patient states feeling better. Patient states symptoms have improved. Pt resting on stretcher, respirations even and unlabored; skin pink, warm, dry. Vital Signs: 10/27 23:14 BP 112 / 64; Pulse 56; Resp 18 S; Temp 98.9(O); Pulse Ox 99% on R/A; Weight 55.34 kg kmg1 (R); Height 5 ft. 3 in. (160.02 cm) (R); Pain 4/10; 10/28 01:22 BP 100 / 53; Pulse 79; Resp 18; Temp 98.4(TE); Pulse Ox 99% on R/A; Pain 0/10; inessa 10/27 23:14 Body Mass Index 21.61 (55.34 kg, 160.02 cm) km Vitals: 10/27 23:14 Log In Time: October 27, 2016 at 23:14. gr2 ED Course: 23:14 Patient visited by Edda Andino. gr2 23:14 NO PRIMARY PHYSICIAN, . is Private Physician. gr2 23:14 Patient moved to Waiting gr2 23:18 Triage Initiated [facility] [place] 23:22 Patient visited by Edda Andino. gr2 23:22 Patient moved to Pre RCE gr2 23:23 Patient visited by Marilee Pat RN. kmg1 23:49 Patient moved to 7 cz 23:57 Geovanni Jordan DO is Attending Physician. cs11 23:57 Patient visited by Geovanni Jordan DO. cs11 10/28 00:15 The patient / caregiver is instructed regarding the plan of care and ED course. js15 00:22 HCG,Serum Qualitative Sent. [facility] 00:22 Lipase Sent. [facility] 00:22 Amylase Sent. [facility] 00:22 Liver Profile Sent. [facility] 00:22 MED Profile Sent. [facility] 00:22 CBC with Diff Sent. [facility] 00:22 Inserted saline lock: 20 gauge in right antecubital area and blood collected. The [facility] patient tolerated the procedure well. Labs drawn. (by ED staff). Sent per order to lab. Urine collected. Clean catch specimen. Urine specimen sent to lab. 00:23 Patient visited by Letitia Castañeda RN. [facility] 00:35 Urine Culture Sent. js15 01:23 Patient visited by Keila Gayle PCA. inessa 01:26 Discontinued IV lock intact, bleeding controlled, pressure dressing applied, No js15 redness/swelling at site. No procedures done that require assistance. Administered Medications: 00:35 Drug: NS 0.9% 1000 ml [sodium chloride 0.9 % intravenous solution] Route: IV; Rate: js15 bolus; Site: right antecubital; Follow up: IV Status: Infusion discontinued; IV Intake: 500ml js15 00:35 Drug: Metoclopramide 10 mg [metoclopramide 5 mg/mL injection solution] Route: IV; Rate: js15 40 mg/hr; Infused Over: 15 mins; Site: right antecubital; Intake: : IV: 500.00ml; Total: 500.00ml. js15 Order Results: Lab Order: CBC with Diff; SPEC'M 10/28/16 00:17 Test: WHITE BLOOD COUNT; Value: 7.5; Range: 4.0-10.0; Units: K/mm3; Status: F Test: RED BLOOD COUNT; Value: 4.44; Range: 4.00-5.40; Units: M/mm3; Status: F Test: HEMOGLOBIN; Value: 13.6; Range: 12.0-16.0; Units: g/dl; Status: F Test: HEMATOCRIT; Value: 38.6; Range: 36.0-47.0; Units: %; Status: F Test: MEAN CORPUSCULAR VOLUME; Value: 86.9; Range: 80.0-96.0; Units: fl; Status: F Test: MEAN CORPUSCULAR HEMOGLOBIN; Value: 30.7; Range: 27.0-33.0; Units: pg; Status: F Test: MEAN CORPUSCULAR HGB CONC; Value: 35.3; Range: 32.0-36.5; Units: g/dl; Status: F Test: RED CELL DISTRIBUTION WIDTH; Value: 12.0; Range: 11.5-14.5; Units: %; Status: F Test: PLATELET COUNT, AUTOMATED; Value: 299; Range: 150-450; Units: k/mm3; Status: F Test: NEUTROPHILS %; Value: 50.9; Range: 36.0-66.0; Units: %; Status: F Test: LYMPH %; Value: 37.7; Range: 24.0-44.0; Units: %; Status: F Test: MONO %; Value: 6.2; Range: 0.0-5.0; Abnormal: Above high normal; Units: %; Status: F Test: EOS %; Value: 2.7; Range: 0.0-3.0; Units: %; Status: F Test: BASO %; Value: 0.5; Range: 0.0-1.0; Units: %; Status: F Test: LARGE UNSTAINED CELL %; Value: 2.0; Range: 0.0-4.0; Units: %; Status: F Test: NEUTROPHILS #; Value: 3.8; Range: 1.8-7.7; Units: K/mm3; Status: F Test: LYMPH #; Value: 2.8; Range: 1.5-6.5; Units: K/mm3; Status: F Test: MONO #; Value: 0.5; Range: 0.0-0.8; Units: K/mm3; Status: F Test: EOS #; Value: 0.2; Range: 0.0-0.50; Units: K/mm3; Status: F Test: BASO #; Value: 0.0; Range: 0.0-0.2; Units: K/mm3; Status: F Test: LARGE UNSTAINED CELL #; Value: 0.2; Range: 0.0-0.4; Units: K/mm3; Status: F Lab Order: MED Profile; SPEC'M 10/28/16 00:17 Test: GLUCOSE, FASTING; Value: 92; Range: 70-105; Units: MG/DL; Status: F Test: BLOOD UREA NITROGEN; Value: 15; Range: 7-18; Units: MG/DL; Status: F Test: CREATININE FOR GFR; Value: 0.67; Range: 0.55-1.02; Units: MG/DL; Status: F Test: SODIUM LEVEL; Value: 141; Range: 136-145; Units: MEQ/L; Status: F Test: POTASSIUM SERUM; Value: 3.7; Range: 3.5-5.1; Units: MEQ/L; Status: F Test: CHLORIDE LEVEL; Value: 106; Range: 98-107; Units: MEQ/L; Status: F Test: CARBON DIOXIDE LEVEL; Value: 29; Range: 21-32; Units: MEQ/L; Status: F Test: ANION GAP; Value: 6; Range: 8-16; Abnormal: Below low normal; Units: MEQ/L; Status: F Test: CALCIUM LEVEL; Value: 8.7; Range: 8.5-10.1; Units: MG/DL; Status: F Lab Order: Liver Profile; SPEC'M 10/28/16 00:17 Test: AST/SGOT; Value: 20; Range: 15-37; Units: U/L; Status: F Test: ALT/SGPT; Value: 12; Range: 12-78; Units: U/L; Status: F Test: ALKALINE PHOSPHATASE; Value: 57; Range: 45-117; Units: U/L; Status: F Test: BILIRUBIN,TOTAL; Value: 0.1; Range: 0.2-1.0; Abnormal: Below low normal; Units: MG/DL; Status: F Test: BILIRUBIN,DIRECT; Value: < 0.1; Range: 0.0-0.2; Units: MG/DL; Status: F Test: TOTAL PROTEIN; Value: 7.7; Range: 6.4-8.2; Units: GM/DL; Status: F Test: ALBUMIN; Value: 3.9; Range: 3.2-5.2; Units: GM/DL; Status: F Test: ALBUMIN/GLOBULIN RATIO; Value: 1.03; Range: 1.00-1.93; Status: F Lab Order: Amylase; SPEC10/28/16: Test: AMYLASE; Value: 61; Range: 25-115; Units: U/L; Status: F Lab Order: Lipase; 10/28/16: Test: LIPASE; Value: 201; Range: 73-393; Units: U/L; Status: F Lab Order: HCG,Serum Qualitative; 10/28/16: Test: HCG, SERUM QUALITATIVE; Value: NEGATIVE; Range: NEGATIVE; Status: F Lab Order: Urinalysis; 10/28/16: Test: APPEARANCE, URINE; Value: CLEAR; Range: CLEAR; Status: F Test: COLOR, URINE; Value: YELLOW; Range: YELLOW; Status: F Test: PH,URINE; Value: 6.0; Range: 5.0-9.0; Units: UNITS; Status: F Test: SPECIFIC GRAVITY URINE AUTO; Value: 1.026; Range: 1.002-1.035; Status: F Test: PROTEIN, URINE AUTO; Value: NEGATIVE; Range: NEGATIVE; Units: mg/dL; Status: F Test: GLUCOSE, URINE (UA) AUTO; Value: NEGATIVE; Range: NEGATIVE; Units: mg/dL; Status: F Test: KETONE, URINE AUTO; Value: NEGATIVE; Range: NEGATIVE; Units: mg/dL; Status: F Test: UROBILINOGEN, URINE AUTO; Value: 0.2; Range: 0.0-2.0; Units: mg/dL; Status: F Test: BILIRUBIN, URINE AUTO; Value: NEGATIVE; Range: NEGATIVE; Status: F Test: NITRITE, URINE AUTO; Value: NEGATIVE; Range: NEGATIVE; Status: F Test: LEUKOCYTE ESTERASE, URINE AUTO; Value: NEGATIVE; Range: NEGATIVE; Status: F Test: BLOOD, URINE BLOOD; Value: NEGATIVE; Range: NEGATIVE; Status: F Test: WBC, URINE AUTO; Value: 2; Range: 0-3; Units: /HPF; Status: F Test: RBC, URINE AUTO; Value: 1; Range: 0-3; Units: /HPF; Status: F Test: BACTERIA, URINE AUTO; Value: NEGATIVE; Range: NEGATIVE; Status: F Test: SQUAMOUS EPITHELIAL CELL UR AU; Value: 2; Range: 0-6; Units: /HPF; Status: F Test: MUCUS, URINE; Value: SMALL; Range: NEGATIVE; Status: F Test: HYALINE CAST, URINE AUTO; Value: 0; Range: 0-1; Units: /LPF; Status: F Outcome: 01:14 Discharge ordered by Provider. 11 01:26 Discharge Assessment: Patient awake, alert and oriented x 3. No cognitive and/or js15 functional deficits noted. Patient verbalized understanding of disposition instructions. patient administered narcotics - no. The following High Risk Discharge criteria are identified: None. Discharged to home ambulatory, with significant other. Condition: stable. Discharge instructions given to patient, Instructed on discharge instructions, follow up and referral plans. diet, Demonstrated understanding of instructions, Pt was receptive of discharge instructions/ teaching. No special radiology studies were completed. Property sent home with patient. 01:27 Patient left the ED. js15 Signatures: Marilee Pat RN RN [facility] [place] Letitia Castañeda RN RN [facility]cp Zecher, Calvin, ROHAN MADRIGAL cz Keila Gayle, CIDER MAKER CIDER MAKER inessa Geovanni Jordan, DO DO cs11 Edda Andino gr2 Dory Corona,RN RN js15 Corrections: (The following items were deleted from the chart) 10/27 23:23 23:14 BP 112 / 64; Pulse 56bpm; Resp 18bpm; Spontaneous; Pulse Ox 99% RA; 55.34 kg kmg1 Reported; Height 5 ft. 3 in. Reported; BMI: 21.6; Pain 4/10; gr2 MTDD
--- NOTE | 2016-10-28 01:28 | EDDOCDS ---
Physician Documentation [facility] Name: Man Rao Age: 21 yrs Sex: Female : 1995 Arrival Date: 10/27/2016 Time: 23:12 Bed 7 Private MD: NO PRIMARY PHYSICIAN, . Disposition: 10/28/16 01:14 Discharged to Home/Self Care. Impression: Noninfective gastroenteritis and colitis, unspecified. - Condition is Stable. - Discharge Instructions: Clear Liquid Diet. - Medication Reconciliation, Local Pharmacy Hours form. - Follow up: Private Physician; When: Call to arrange an appointment; Reason: Recheck today's complaints. - Problem is an ongoing problem. - Symptoms are resolved. Historical: - Allergies: No known drug Allergies; - Home Meds: 1. Zofran (as hydrochloride) 4 mg Oral tab 1 tabs every 8 hours (Last dose: 10/26/2016) - PMHx: none; - PSHx: Appendectomy; - Social history: Smoking status: Patient states was never smoker of tobacco. No barriers to communication noted, The patient speaks fluent [place], Speaks appropriately for age. - Family history: Not pertinent. - : The pt / caregiver states he / she is not on anticoagulants. Home medication list is obtained from the patient. - Exposure Risk Screening:: None identified. 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 3 in. (160.02 cm) (R); Pain 4/10; 10/28 01:22 BP 100 / 53; Pulse 79; Resp 18; Temp 98.4(TE); Pulse Ox 99% on R/A; Pain 0/10; inessa 10/27 23:14 Body Mass Index 21.61 (55.34 kg, 160.02 cm) km MDM: 00:09 IV Saline Lock ordered. cs11 00:09 NS 0.9% 1000 ml IV at bolus once ordered. cs11 00:09 Metoclopramide 10 mg IV at 40 mg/hr once over 15 mins ordered. cs11 00:10 CBC with Diff Ordered. EDMS 00:10 MED Profile Ordered. EDMS 00:10 Liver Profile Ordered. EDMS 00:10 Amylase Ordered. EDMS 00:10 Lipase Ordered. EDMS 00:10 HCG,Serum Qualitative Ordered. EDMS 00:10 Urinalysis Ordered. EDMS 00:10 Urine Culture Ordered. EDMS 00:59 Financial registration complete. [facility] 01:11 CBC with Diff Reviewed. cs11 01:11 MED Profile Reviewed. cs11 01:11 Liver Profile Reviewed. cs11 01:11 Amylase Reviewed. cs11 01:11 Lipase Reviewed. cs11 01:11 HCG,Serum Qualitative Reviewed. cs11 01:11 Urinalysis Reviewed. cs11 Administered Medications: 00:35 Drug: NS 0.9% 1000 ml [sodium chloride 0.9 % intravenous solution] Route: IV; Rate: js15 bolus; Site: right antecubital; :27 Follow up: IV Status: Infusion discontinued; IV Intake: 500ml js15 00:35 Drug: Metoclopramide 10 mg [metoclopramide 5 mg/mL injection solution] Route: IV; Rate: js15 40 mg/hr; Infused Over: 15 mins; Site: right antecubital; Signatures: Dispatcher [employer] [facility] Marilee Pat, RN RN kmg1 Geovanni Jordan DO DO cs11 Janki Mcdaniel [facility] Dory Corona,ROHAN RN js15 MTDD
--- NOTE | 2016-10-30 02:29 | EDDOCDS ---
Nurse's Notes [facility] Name: Man Rao Age: 21 yrs Sex: Female : 1995 Arrival Date: 10/27/2016 Time: 23:12 Bed 7 Private MD: NO PRIMARY PHYSICIAN, . Diagnosis: Noninfective gastroenteritis and colitis, unspecified Presentation: 10/27 23:16 Presenting complaint: Patient states: Was seen here last week for Nausea and vomiting. kmg1 Abdominal cramping. Risk factors: the patient reports a small or scant amount of vaginal bleeding. Adult Sepsis Screening: The patient does not have new or worsening altered mentation. Patient's respiratory rate is less than 22. Systolic blood pressure is greater than 100. Patient has a qSOFA score of 0- Negative Sepsis Screen. Suicide/Homicide risk assessment- the patient denies having any suicidal and/or homicidal ideations and does not present with any other emotional, behavioral or mental health complaints. Status: The patient is a dependent. Transition of care: patient was not received from another setting of care. 23:16 Acuity: BETINA Level 3 km 23:16 Method Of Arrival: Walkin/Carried/Asstd km Triage Assessment: 23:19 General: Appears in no apparent distress, comfortable, Behavior is appropriate for age, kmg1 cooperative, pleasant. Pain: Location: suprapubic area and left lower quadrant Pain currently is 6 out of 10 on a pain scale. Quality of pain is described as crampy, sharp. HIV screening NA for this visit Offered previously. GI: Reports cramping, lower abdominal pain, nausea, vomiting. : Reports vaginal bleeding that is spotty. 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 Zofran (as hydrochloride) 4 mg Oral tab 1 tabs every 8 hours (Last dose: 10/26/2016) - PMHx: none; - PSHx: Appendectomy; - Social history: Smoking status: Patient states was never smoker of tobacco. No barriers to communication noted, The patient speaks fluent Estonian, Speaks appropriately for age. - Family history: Not pertinent. - : The pt / caregiver states he / she is not on anticoagulants. Home medication list is obtained from the patient. - Exposure Risk Screening:: None identified. Screenin/22 01:25 Screening information is obtained from the patient. Fall risk: No risks identified. js15 Assistance ADL's: requires no assistance with activities of daily living. Abuse/DV Screen: The patient / caregiver reports he/she is: not in a situation that causes fear, pain or injury. Nutritional screening: No deficits noted. Advance Directives: There is no active DNR order. home support is adequate. Assessment: 00:15 General: Appears in no apparent distress, Behavior is appropriate for age, cooperative. js15 Pain: Location: suprapubic area Quality of pain is described as crampy. Neurological: Level of Consciousness is awake, alert, obeys commands, Oriented to person, place, time. Respiratory: Airway is patent Respiratory effort is even, unlabored, Respiratory pattern is regular, symmetrical. GI: Abdomen is flat, Bowel sounds present X 4 quads. Abd is soft and non tender X 4 quads. Derm: Skin is pink, warm & dry. 01:25 Reassessment: Patient appears in no apparent distress at this time. Patient denies pain js15 at this time. Patient states feeling better. Patient states symptoms have improved. Pt resting on stretcher, respirations even and unlabored; skin pink, warm, dry. Vital Signs: 10/27 23:14 BP 112 / 64; Pulse 56; Resp 18 S; Temp 98.9(O); Pulse Ox 99% on R/A; Weight 55.34 kg kmg1 (R); Height 5 ft. 3 in. (160.02 cm) (R); Pain 4/10; 10/28 01:22 BP 100 / 53; Pulse 79; Resp 18; Temp 98.4(TE); Pulse Ox 99% on R/A; Pain 0/10; inessa 10/27 23:14 Body Mass Index 21.61 (55.34 kg, 160.02 cm) km Vitals: 10/27 23:14 Log In Time: October 27, 2016 at 23:14. gr2 ED Course: 23:14 Patient visited by Edda Andino. gr2 23:14 NO PRIMARY PHYSICIAN, . is Private Physician. gr2 23:14 Patient moved to Waiting gr2 23:18 Triage Initiated [facility] 23:22 Patient visited by Edda Andino. gr2 23:22 Patient moved to Pre RCE gr2 23:23 Patient visited by Marilee Pat RN. kmg1 23:49 Patient moved to 7 cz 23:57 Geovanni Jordan DO is Attending Physician. cs11 23:57 Patient visited by Geovanni Jordan DO. cs11 10/28 00:15 The patient / caregiver is instructed regarding the plan of care and ED course. js15 00:22 HCG,Serum Qualitative Sent. [facility] 00:22 Lipase Sent. [facility] 00:22 Amylase Sent. [facility] 00:22 Liver Profile Sent. [facility] 00:22 MED Profile Sent. [facility] 00:22 CBC with Diff Sent. [facility] 00:22 Inserted saline lock: 20 gauge in right antecubital area and blood collected. The [facility] patient tolerated the procedure well. Labs drawn. (by ED staff). Sent per order to lab. Urine collected. Clean catch specimen. Urine specimen sent to lab. 00:23 Patient visited by Letitia Castañeda RN. [facility] 00:35 Urine Culture Sent. js15 01:23 Patient visited by Keila Gayle PCA. niessa 01:26 Discontinued IV lock intact, bleeding controlled, pressure dressing applied, No js15 redness/swelling at site. No procedures done that require assistance. 03:13 [facility] [place] [place] Payment Agreement was scanned into [employer] and attached to record. [facility] 17:12 T-Sheet-- Draft Copy was scanned into [employer] and attached to record. klr Administered Medications: 00:35 Drug: NS 0.9% 1000 ml [sodium chloride 0.9 % intravenous solution] Route: IV; Rate: js15 bolus; Site: right antecubital; :27 Follow up: IV Status: Infusion discontinued; IV Intake: 500ml js15 00:35 Drug: Metoclopramide 10 mg [metoclopramide 5 mg/mL injection solution] Route: IV; Rate: js15 40 mg/hr; Infused Over: 15 mins; Site: right antecubital; Intake: :27 IV: 500.00ml; Total: 500.00ml. js15 Order Results: Lab Order: CBC with Diff; SPEC'M 10/28/16 00:17 Test: WHITE BLOOD COUNT; Value: 7.5; Range: 4.0-10.0; Units: K/mm3; Status: F Test: RED BLOOD COUNT; Value: 4.44; Range: 4.00-5.40; Units: M/mm3; Status: F Test: HEMOGLOBIN; Value: 13.6; Range: 12.0-16.0; Units: g/dl; Status: F Test: HEMATOCRIT; Value: 38.6; Range: 36.0-47.0; Units: %; Status: F Test: MEAN CORPUSCULAR VOLUME; Value: 86.9; Range: 80.0-96.0; Units: fl; Status: F Test: MEAN CORPUSCULAR HEMOGLOBIN; Value: 30.7; Range: 27.0-33.0; Units: pg; Status: F Test: MEAN CORPUSCULAR HGB CONC; Value: 35.3; Range: 32.0-36.5; Units: g/dl; Status: F Test: RED CELL DISTRIBUTION WIDTH; Value: 12.0; Range: 11.5-14.5; Units: %; Status: F Test: PLATELET COUNT, AUTOMATED; Value: 299; Range: 150-450; Units: k/mm3; Status: F Test: NEUTROPHILS %; Value: 50.9; Range: 36.0-66.0; Units: %; Status: F Test: LYMPH %; Value: 37.7; Range: 24.0-44.0; Units: %; Status: F Test: MONO %; Value: 6.2; Range: 0.0-5.0; Abnormal: Above high normal; Units: %; Status: F Test: EOS %; Value: 2.7; Range: 0.0-3.0; Units: %; Status: F Test: BASO %; Value: 0.5; Range: 0.0-1.0; Units: %; Status: F Test: LARGE UNSTAINED CELL %; Value: 2.0; Range: 0.0-4.0; Units: %; Status: F Test: NEUTROPHILS #; Value: 3.8; Range: 1.8-7.7; Units: K/mm3; Status: F Test: LYMPH #; Value: 2.8; Range: 1.5-6.5; Units: K/mm3; Status: F Test: MONO #; Value: 0.5; Range: 0.0-0.8; Units: K/mm3; Status: F Test: EOS #; Value: 0.2; Range: 0.0-0.50; Units: K/mm3; Status: F Test: BASO #; Value: 0.0; Range: 0.0-0.2; Units: K/mm3; Status: F Test: LARGE UNSTAINED CELL #; Value: 0.2; Range: 0.0-0.4; Units: K/mm3; Status: F Lab Order: MED Profile; SPEC' 10/28/16 00:17 Test: GLUCOSE, FASTING; Value: 92; Range: 70-105; Units: MG/DL; Status: F Test: BLOOD UREA NITROGEN; Value: 15; Range: 7-18; Units: MG/DL; Status: F Test: CREATININE FOR GFR; Value: 0.67; Range: 0.55-1.02; Units: MG/DL; Status: F Test: SODIUM LEVEL; Value: 141; Range: 136-145; Units: MEQ/L; Status: F Test: POTASSIUM SERUM; Value: 3.7; Range: 3.5-5.1; Units: MEQ/L; Status: F Test: CHLORIDE LEVEL; Value: 106; Range: 98-107; Units: MEQ/L; Status: F Test: CARBON DIOXIDE LEVEL; Value: 29; Range: 21-32; Units: MEQ/L; Status: F Test: ANION GAP; Value: 6; Range: 8-16; Abnormal: Below low normal; Units: MEQ/L; Status: F Test: CALCIUM LEVEL; Value: 8.7; Range: 8.5-10.1; Units: MG/DL; Status: F Lab Order: Liver Profile; [facility]' 10/28/16 00:17 Test: AST/SGOT; Value: 20; Range: 15-37; Units: U/L; Status: F Test: ALT/SGPT; Value: 12; Range: 12-78; Units: U/L; Status: F Test: ALKALINE PHOSPHATASE; Value: 57; Range: 45-117; Units: U/L; Status: F Test: BILIRUBIN,TOTAL; Value: 0.1; Range: 0.2-1.0; Abnormal: Below low normal; Units: MG/DL; Status: F Test: BILIRUBIN,DIRECT; Value: < 0.1; Range: 0.0-0.2; Units: MG/DL; Status: F Test: TOTAL PROTEIN; Value: 7.7; Range: 6.4-8.2; Units: GM/DL; Status: F Test: ALBUMIN; Value: 3.9; Range: 3.2-5.2; Units: GM/DL; Status: F Test: ALBUMIN/GLOBULIN RATIO; Value: 1.03; Range: 1.00-1.93; Status: F Lab Order: Amylase; SPEC' 10/28/16:17 Test: AMYLASE; Value: 61; Range: 25-115; Units: U/L; Status: F Lab Order: Lipase; SPEC' 10/28/16:17 Test: LIPASE; Value: 201; Range: 73-393; Units: U/L; Status: F Lab Order: HCG,Serum Qualitative; SPEC' 10/28/16:17 Test: HCG, SERUM QUALITATIVE; Value: NEGATIVE; Range: NEGATIVE; Status: F Lab Order: Urinalysis; SPEC 10/28/16:17 Test: APPEARANCE, URINE; Value: CLEAR; Range: CLEAR; Status: F Test: COLOR, URINE; Value: YELLOW; Range: YELLOW; Status: F Test: PH,URINE; Value: 6.0; Range: 5.0-9.0; Units: UNITS; Status: F Test: SPECIFIC GRAVITY URINE AUTO; Value: 1.026; Range: 1.002-1.035; Status: F Test: PROTEIN, URINE AUTO; Value: NEGATIVE; Range: NEGATIVE; Units: mg/dL; Status: F Test: GLUCOSE, URINE (UA) AUTO; Value: NEGATIVE; Range: NEGATIVE; Units: mg/dL; Status: F Test: KETONE, URINE AUTO; Value: NEGATIVE; Range: NEGATIVE; Units: mg/dL; Status: F Test: UROBILINOGEN, URINE AUTO; Value: 0.2; Range: 0.0-2.0; Units: mg/dL; Status: F Test: BILIRUBIN, URINE AUTO; Value: NEGATIVE; Range: NEGATIVE; Status: F Test: NITRITE, URINE AUTO; Value: NEGATIVE; Range: NEGATIVE; Status: F Test: LEUKOCYTE ESTERASE, URINE AUTO; Value: NEGATIVE; Range: NEGATIVE; Status: F Test: BLOOD, URINE BLOOD; Value: NEGATIVE; Range: NEGATIVE; Status: F Test: WBC, URINE AUTO; Value: 2; Range: 0-3; Units: /HPF; Status: F Test: RBC, URINE AUTO; Value: 1; Range: 0-3; Units: /HPF; Status: F Test: BACTERIA, URINE AUTO; Value: NEGATIVE; Range: NEGATIVE; Status: F Test: SQUAMOUS EPITHELIAL CELL UR AU; Value: 2; Range: 0-6; Units: /HPF; Status: F Test: MUCUS, URINE; Value: SMALL; Range: NEGATIVE; Status: F Test: HYALINE CAST, URINE AUTO; Value: 0; Range: 0-1; Units: /LPF; Status: F Lab Order: Urine Culture; SPEC'M 10/28/16 00:17 Test: URINE CULTURE; Value: URINE CULTURE RESULT NO GROWTH; Status: F Outcome: 01:14 Discharge ordered by Provider. cs11 01:26 Discharge Assessment: Patient awake, alert and oriented x 3. No cognitive and/or js15 functional deficits noted. Patient verbalized understanding of disposition instructions. patient administered narcotics - no. The following High Risk Discharge criteria are identified: None. Discharged to home ambulatory, with significant other. Condition: stable. Discharge instructions given to patient, Instructed on discharge instructions, follow up and referral plans. diet, Demonstrated understanding of instructions, Pt was receptive of discharge instructions/ teaching. No special radiology studies were completed. Property sent home with patient. 01:27 Patient left the ED. js15 Signatures: Marilee Pat RN RN kmg1 Letitia Castañeda RN RN mcp Zecher, Calvin, RN RN cz Keila Gayle, HYDROMETEOROLOGICAL TECHNICIAN HYDROMETEOROLOGICAL TECHNICIAN Geovanni Rod, DO DO cs11 Edda Andino gr2 Janki Mcdaniel Julia, RN RN js15 Leti Roth Corrections: (The following items were deleted from the chart) 10/27 23:23 23:14 BP 112 / 64; Pulse 56bpm; Resp 18bpm; Spontaneous; Pulse Ox 99% RA; 55.34 kg kmg1 Reported; Height 5 ft. 3 in. Reported; BMI: 21.6; Pain 4/10; gr2 Chart Complete MTDD
--- NOTE | 2016-10-30 02:29 | EDDOCDS ---
Physician Documentation [facility] Name: Man Rao Age: 21 yrs Sex: Female : 1995 Arrival Date: 10/27/2016 Time: 23:12 Bed 7 Private MD: NO PRIMARY PHYSICIAN, . Disposition: 10/28/16 01:14 Discharged to Home/Self Care. Impression: Noninfective gastroenteritis and colitis, unspecified. - Condition is Stable. - Discharge Instructions: Clear Liquid Diet. - Medication Reconciliation, Local Pharmacy Hours form. - Follow up: Private Physician; When: Call to arrange an appointment; Reason: Recheck today's complaints. - Problem is an ongoing problem. - Symptoms are resolved. Historical: - Allergies: No known drug Allergies; - Home Meds: 1. Zofran (as hydrochloride) 4 mg Oral tab 1 tabs every 8 hours (Last dose: 10/26/2016) - PMHx: none; - PSHx: Appendectomy; - Social history: Smoking status: Patient states was never smoker of tobacco. No barriers to communication noted, The patient speaks fluent Bermudian, Speaks appropriately for age. - Family history: Not pertinent. - : The pt / caregiver states he / she is not on anticoagulants. Home medication list is obtained from the patient. - Exposure Risk Screening:: None identified. 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 3 in. (160.02 cm) (R); Pain 4/10; 10/28 01:22 BP 100 / 53; Pulse 79; Resp 18; Temp 98.4(TE); Pulse Ox 99% on R/A; Pain 0/10; inessa 10/27 23:14 Body Mass Index 21.61 (55.34 kg, 160.02 cm) km MDM: 00:09 IV Saline Lock ordered. cs11 00:09 NS 0.9% 1000 ml IV at bolus once ordered. cs11 00:09 Metoclopramide 10 mg IV at 40 mg/hr once over 15 mins ordered. cs11 00:10 CBC with Diff Ordered. EDMS 00:10 MED Profile Ordered. EDMS 00:10 Liver Profile Ordered. EDMS 00:10 Amylase Ordered. EDMS 00:10 Lipase Ordered. EDMS 00:10 HCG,Serum Qualitative Ordered. EDMS 00:10 Urinalysis Ordered. EDMS 00:10 Urine Culture Ordered. EDMS 00:59 Financial registration complete. slh 01:11 CBC with Diff Reviewed. cs11 01:11 MED Profile Reviewed. cs11 01:11 Liver Profile Reviewed. cs11 01:11 Amylase Reviewed. cs11 01:11 Lipase Reviewed. cs11 01:11 HCG,Serum Qualitative Reviewed. cs11 01:11 Urinalysis Reviewed. 11 03:13 [facility] Payment Agreement was scanned into [employer] and attached to record. [facility] 17:12 T-Sheet-- Draft Copy was scanned into [employer] and attached to record. klr Administered Medications: 00:35 Drug: NS 0.9% 1000 ml [sodium chloride 0.9 % intravenous solution] Route: IV; Rate: js15 bolus; Site: right antecubital; 01:27 Follow up: IV Status: Infusion discontinued; IV Intake: 500ml js15 00:35 Drug: Metoclopramide 10 mg [metoclopramide 5 mg/mL injection solution] Route: IV; Rate: js15 40 mg/hr; Infused Over: 15 mins; Site: right antecubital; Signatures: [facility] Marilee Pat RN RN kmg1 Geovanni Jordan, DO cs11 Janki Mcdaniel [facility] Dory Corona RN RN js15 Leti Roth The chart was reviewed and I authenticate all verbal orders and agree with the evaluation and treatment provided.Attachments: 03:13 [facility] Payment Agreement [facility] 17:12 T-Sheet-- Draft Copy klr Chart Complete MTDD
--- NOTE | 2016-10-30 02:29 | EDDOCDS ---
Physician Documentation [facility] Name: Man Rao Age: 21 yrs Sex: Female : 1995 Arrival Date: 10/27/2016 Time: 23:12 Bed 7 Private MD: NO PRIMARY PHYSICIAN, . Disposition: 10/28/16 01:14 Discharged to Home/Self Care. Impression: Noninfective gastroenteritis and colitis, unspecified. - Condition is Stable. - Discharge Instructions: Clear Liquid Diet. - Medication Reconciliation, Local Pharmacy Hours form. - Follow up: Private Physician; When: Call to arrange an appointment; Reason: Recheck today's complaints. - Problem is an ongoing problem. - Symptoms are resolved. Historical: - Allergies: No known drug Allergies; - Home Meds: 1. Zofran (as hydrochloride) 4 mg Oral tab 1 tabs every 8 hours (Last dose: 10/26/2016) - PMHx: none; - PSHx: Appendectomy; - Social history: Smoking status: Patient states was never smoker of tobacco. No barriers to communication noted, The patient speaks fluent Guamanian, Speaks appropriately for age. - Family history: Not pertinent. - : The pt / caregiver states he / she is not on anticoagulants. Home medication list is obtained from the patient. - Exposure Risk Screening:: None identified. 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 3 in. (160.02 cm) (R); Pain 4/10; 10/28 01:22 BP 100 / 53; Pulse 79; Resp 18; Temp 98.4(TE); Pulse Ox 99% on R/A; Pain 0/10; inessa 10/27 23:14 Body Mass Index 21.61 (55.34 kg, 160.02 cm) km MDM: 00:09 IV Saline Lock ordered. cs11 00:09 NS 0.9% 1000 ml IV at bolus once ordered. cs11 00:09 Metoclopramide 10 mg IV at 40 mg/hr once over 15 mins ordered. cs11 00:10 CBC with Diff Ordered. EDMS 00:10 MED Profile Ordered. EDMS 00:10 Liver Profile Ordered. EDMS 00:10 Amylase Ordered. EDMS 00:10 Lipase Ordered. EDMS 00:10 HCG,Serum Qualitative Ordered. EDMS 00:10 Urinalysis Ordered. EDMS 00:10 Urine Culture Ordered. EDMS 00:59 Financial registration complete. slh 01:11 CBC with Diff Reviewed. cs11 01:11 MED Profile Reviewed. cs11 01:11 Liver Profile Reviewed. cs11 01:11 Amylase Reviewed. cs11 01:11 Lipase Reviewed. cs11 01:11 HCG,Serum Qualitative Reviewed. cs11 01:11 Urinalysis Reviewed. 11 03:13 [facility] Payment Agreement was scanned into [employer] and attached to record. [facility] 17:12 T-Sheet-- Draft Copy was scanned into [employer] and attached to record. klr Administered Medications: 00:35 Drug: NS 0.9% 1000 ml [sodium chloride 0.9 % intravenous solution] Route: IV; Rate: js15 bolus; Site: right antecubital; 01:27 Follow up: IV Status: Infusion discontinued; IV Intake: 500ml js15 00:35 Drug: Metoclopramide 10 mg [metoclopramide 5 mg/mL injection solution] Route: IV; Rate: js15 40 mg/hr; Infused Over: 15 mins; Site: right antecubital; Signatures: [facility] Marilee Pat RN RN kmg1 Geovanni Jordan, DO cs11 Janki Mcdaniel [facility] Dory Corona RN RN js15 Leti Roth The chart was reviewed and I authenticate all verbal orders and agree with the evaluation and treatment provided.Attachments: 03:13 [facility] Payment Agreement [facility] 17:12 T-Sheet-- Draft Copy klr Chart Complete MTDD
== END 2016-10-28 01:27 | disposition home or self-care (01) ==
LOC: M ED 23:12
DX: K52.9 Noninfective gastroenteritis and colitis, unspecified (principal)
CPT/HCPCS: 36415; 80048; 80076; 81001; 82150; 83690; 84703; 85025; 87086; 96361; 96374; 99284; J2765

== ENCOUNTER → 2017-04-01 | Outpatient (REF) | payer OTHER | LOC: M SFHCLERA 15:05 | PROVIDERS: ATTEND Nurse Practitioner Family | DX: R11.0 Nausea (principal) ==

== ENCOUNTER 2017-05-05 20:06 | Emergency (ER) | payer OTHER ==
[~2017-05-05] VITALS: Ht 160 cm; Wt 59.1 kg
[2017-05-05] MEDS ORDERED: KEFL500C17 PO (20:12)
[2017-05-05 20:59] LABS: MEAN CORPUSCULAR HEMOGLOBIN 29.3 pg (27.0-33.0); MEAN CORPUSCULAR HGB CONC 33.3 g/dl (32.0-36.5); MEAN CORPUSCULAR VOLUME 87.8 fl (80.0-96.0); WHITE BLOOD COUNT 8.1 K/mm3 (4.0-10.0)
[2017-05-05 21:15] LABS: ANION GAP 7 MEQ/L (8-16); BLOOD UREA NITROGEN 13 MG/DL (7-18); CALCIUM LEVEL 9.2 MG/DL (8.5-10.1); CARBON DIOXIDE LEVEL 28 MEQ/L (21-32); CHLORIDE LEVEL 106 MEQ/L (98-107); CREATININE FOR GFR 0.71 MG/DL (0.55-1.02); GLUCOSE, FASTING 102 MG/DL (70-105); POTASSIUM SERUM 3.8 MEQ/L (3.5-5.1); SODIUM LEVEL 141 MEQ/L (136-145)
[2017-05-05 21:35] LABS: CONTROL LINE HCG INT CTR LINE PRESENT
[2017-05-05 21:46] VITALS: BP 103/61
[2017-08-11] MEDS ORDERED: ZOFR4TAB3 PO (13:11)
[2017-08-11] MEDS ORDERED: PRIL20CA9 PO (13:11)
== END 2017-05-05 21:46 | disposition home or self-care (01) ==
LOC: M ED 20:06
DX: R11.0 Nausea (principal)

== ENCOUNTER → 2017-05-28 | Outpatient (REF) | payer OTHER ==
[~2017-05-28] MED LIST: BIOTIN GUMMIES PO; KEFL500C17 PO; PRIL20CA9 PO; REGL10TA6 PO; TRETPOW; ZOFR4TAB3 PO
== END ==
LOC: M LAB REF 12:26
PROVIDERS: ATTEND Physician Assistant
DX: R30.0 Dysuria (principal)

== ENCOUNTER 2017-06-10 21:19 | Emergency (ER) | payer OTHER ==
[~2017-06-10] VITALS: Ht 160 cm; Wt 59.1 kg
[~2017-06-10 21:19] MED LIST changes: -BIOTIN GUMMIES PO; -PRIL20CA9 PO; -REGL10TA6 PO; -TRETPOW; -ZOFR4TAB3 PO
[2017-06-10] MEDS ORDERED: TRETPOW (21:39)
[2017-06-10 23:52] VITALS: BP 89/62
[2017-08-11] MEDS ORDERED: PRIL20CA9 PO (13:11)
[2017-08-11] MEDS ORDERED: ZOFR4TAB3 PO (13:11)
== END 2017-06-11 00:21 | disposition home or self-care (01) ==
LOC: M ED 21:19
DX: N93.9 Abnormal uterine and vaginal bleeding, unspecified (principal)

== ENCOUNTER 2017-07-09 17:24 | Emergency (ER) | payer OTHER ==
[~2017-07-09] VITALS: Ht 160 cm; Wt 59.1 kg
[~2017-07-09 17:24] MED LIST changes: +TRETPOW
[2017-07-09] MEDS ORDERED: BIOTIN GUMMIES PO (17:33)
[2017-07-09 19:32] LABS: BASO # 0.1 10^3/uL (0.0-0.2); BASO % 0.5 % (0.0-1.0); EOS # 0.2 10^3/uL (0.0-0.50); EOS % 1.6 % (0.0-3.0); IMMATURE GRANULOCYTE % 0.2 % (0-0); LYMPH # 3.9 10^3/uL (1.5-6.5); LYMPH % 31.1 % (24.0-44.0); MEAN CORPUSCULAR HEMOGLOBIN 29.3 pg (27.0-33.0); MEAN CORPUSCULAR HGB CONC 34.1 g/dl (32.0-36.5); MEAN CORPUSCULAR VOLUME 86.1 fl (80.0-96.0); MONO # 0.8 10^3/uL (0.0-0.8); NEUTROPHILS # 7.5 10^3/uL (1.8-7.7); NEUTROPHILS % 60.6 % (36.0-66.0); PLATELET COUNT, AUTOMATED 328 10^3/uL (150-450); WHITE BLOOD COUNT 12.4 10^3/uL (4.0-10.0)
[2017-07-09 20:04] LABS: ANION GAP 4 MEQ/L (8-16); BLOOD UREA NITROGEN 15 MG/DL (7-18); CARBON DIOXIDE LEVEL 30 MEQ/L (21-32); CHLORIDE LEVEL 104 MEQ/L (98-107); CREATININE FOR GFR 0.78 MG/DL (0.55-1.02); GLUCOSE, FASTING 97 MG/DL (70-105); HCG, SERUM QUANTITATIVE 12 MIU/ML; POTASSIUM SERUM 4.1 MEQ/L (3.5-5.1); SODIUM LEVEL 138 MEQ/L (136-145)
--- NOTE | 2017-07-09 20:40 | REPUSA ---
Clinical history: Pain. Early . Findings: Real-time transabdominal and transvaginal ultrasound images of the pelvis were obtained. An anteverted uterus is noted, measuring 8.5 x 5.6 x 6.3 cm. The uterus demonstrates normal echotexture and echogenicity. The endometrial stripe measures 13 mm and is within normal limits. The right ovary measures 3.7 x 1.8 x 2.5 cm. The left ovary measures 3.0 x 1.5 x 2.2 cm. No adnexal masses are seen. Color Doppler flow is seen within both ovaries. There is no evidence of free fluid. Impression: Unremarkable ultrasound examination of the pelvis. Now intrauterine identified. Differential diagnosis includes early , missed , or ectopic . Follow-up wi th serial serum beta hCG levels is recommended for further evaluation.
[2017-07-09] MEDS ORDERED: REGL10TA6 PO (20:44)
[2017-07-09 20:55] VITALS: BP 122/60
[2017-08-11] MEDS ORDERED: PRIL20CA9 PO (13:11)
[2017-08-11] MEDS ORDERED: ZOFR4TAB3 PO (13:11)
== END 2017-07-09 20:58 | disposition home or self-care (01) ==
LOC: M ED 17:24
DX: O99.89 Other specified diseases and conditions complicating pregnancy, childbirth and the puerperium (principal); R10.2 Pelvic and perineal pain; Z3A.00 Weeks of gestation of pregnancy not specified

== ENCOUNTER 2017-07-10 13:43 | Emergency (ER) | payer OTHER ==
[~2017-07-10] VITALS: Ht 160 cm; Wt 59.1 kg
[~2017-07-10 13:43] MED LIST changes: +BIOTIN GUMMIES PO; +REGL10TA6 PO
[2017-07-10 14:26] VITALS: BP 133/58
[2017-08-11] MEDS ORDERED: ZOFR4TAB3 PO (13:11)
[2017-08-11] MEDS ORDERED: PRIL20CA9 PO (13:11)
== END 2017-07-10 18:21 | disposition left against medical advice (07) ==
LOC: M ED 13:43
DX: O20.9 Hemorrhage in early pregnancy, unspecified (principal); Z53.29 Procedure and treatment not carried out because of patient's decision for other reasons

== ENCOUNTER → 2017-07-11 | Outpatient (CLI) | payer OTHER ==
[~2017-07-11] MED LIST changes: +PRIL20CA9 PO; +ZOFR4TAB3 PO
[2017-07-11 17:20] LABS: BASO # 0.1 10^3/uL (0.0-0.2); BASO % 0.5 % (0.0-1.0); EOS # 0.1 10^3/uL (0.0-0.50); EOS % 1.1 % (0.0-3.0); IMMATURE GRANULOCYTE % 0.5 % (0-0); LYMPH % 27.6 % (24.0-44.0); MEAN CORPUSCULAR VOLUME 87.8 fl (80.0-96.0); MONO # 0.8 10^3/uL (0.0-0.8); MONO % 7.4 % (0.0-5.0); NEUTROPHILS # 6.8 10^3/uL (1.8-7.7); NEUTROPHILS % 62.9 % (36.0-66.0); PLATELET COUNT, AUTOMATED 334 10^3/uL (150-450); RED CELL DISTRIBUTION WIDTH 12.2 % (11.5-14.5); WHITE BLOOD COUNT 10.8 10^3/uL (4.0-10.0)
[2017-07-11 17:30] LABS: ADD MORPHOLOGY? NO
[2017-07-11 17:56] LABS: ANION GAP 11 MEQ/L (8-16); BLOOD UREA NITROGEN 12 MG/DL (7-18); CALCIUM LEVEL 8.6 MG/DL (8.5-10.1); CARBON DIOXIDE LEVEL 25 MEQ/L (21-32); CHLORIDE LEVEL 104 MEQ/L (98-107); CREATININE FOR GFR 0.64 MG/DL (0.55-1.02); GLUCOSE, FASTING 81 MG/DL (70-105); HCG, SERUM QUANTITATIVE 7 MIU/ML; SODIUM LEVEL 140 MEQ/L (136-145)
[2017-07-11 19:39] LABS: MICROSCOPIC INDICATED? MAN NO (NO)
== END ==
LOC: M WUC 11:00
PROVIDERS: ATTEND Physician Assistant
DX: O00.01 Abdominal pregnancy with intrauterine pregnancy (principal); R10.30 Lower abdominal pain, unspecified; Z3A.00 Weeks of gestation of pregnancy not specified

== ENCOUNTER 2017-10-15 18:27 | Emergency (ER) | payer OTHER ==
[2017-10-15] MEDS: DICYCLOMINE INJ 20MG/2ML (J0500) IM (20:45)
[2017-10-15 21:03] LABS: BASO % 0.5 % (0.0-1.0); EOS # 0.2 10^3/uL (0.0-0.50); EOS % 2.4 % (0.0-3.0); HEMOGLOBIN 13.4 g/dl (12.0-16.0); IMMATURE GRANULOCYTE % 0.4 % (0-0); LYMPH # 2.8 10^3/uL (1.5-6.5); MEAN CORPUSCULAR HEMOGLOBIN 29.1 pg (27.0-33.0); MEAN CORPUSCULAR HGB CONC 33.5 g/dl (32.0-36.5); MONO # 0.8 10^3/uL (0.0-0.8); MONO % 9.1 % (0.0-5.0); NEUTROPHILS # 4.6 10^3/uL (1.8-7.7); NEUTROPHILS % 54.6 % (36.0-66.0); PLATELET COUNT, AUTOMATED 317 10^3/uL (150-450); RED CELL DISTRIBUTION WIDTH 11.6 % (11.5-14.5); WHITE BLOOD COUNT 8.4 10^3/uL (4.0-10.0)
[2017-10-15 21:14] LABS: ANION GAP 4 MEQ/L (8-16); BLOOD UREA NITROGEN 16 MG/DL (7-18); CALCIUM LEVEL 9.4 MG/DL (8.5-10.1); CARBON DIOXIDE LEVEL 31 MEQ/L (21-32); CHLORIDE LEVEL 105 MEQ/L (98-107); CREATININE FOR GFR 0.77 MG/DL (0.55-1.02); GLOMERULAR FILTRATION RATE > 60.0 (>60); GLUCOSE, FASTING 86 MG/DL (70-105); SODIUM LEVEL 140 MEQ/L (136-145)
[2017-10-15 21:29] LABS: KETONE, URINE AUTO RFX TRACE mg/dL (NEGATIVE); LEUKOCYTE ESTERASE UR AUTO RFX NEGATIVE (NEGATIVE); MUCUS, URINE RFX SMALL (NEGATIVE); NITRITE, URINE AUTO RFX NEGATIVE (NEGATIVE); RBC, URINE AUTO RFX 2 /HPF (0-3); SPECIFIC GRAVITY UR AUTO RFX 1.031 (1.002-1.035); SQUAM EPITHELIAL CELL UR AURFX 2 /HPF (0-6); WBC, URINE AUTO RFX 1 /HPF (0-3)
[2017-10-15] MEDS: DICYCLOMINE 10 MG CAP PO (21:30)
== END 2017-10-15 22:19 | disposition home or self-care (01) ==
LOC: M ED 18:27
DX: K52.9 Noninfective gastroenteritis and colitis, unspecified (principal)
CPT/HCPCS: 80048

== ENCOUNTER → 2017-10-25 | Outpatient (CLI) | payer OTHER | LOC: M LRY 17:21 | DX: M25.512 Pain in left shoulder (principal); M54.2 Cervicalgia ==

== ENCOUNTER → 2018-01-01 | Outpatient (REF) | payer OTHER ==
[2018-01-01 17:58] LABS: CHLAMYDIA DNA AMPLIFICATION NEGATIVE (NEGATIVE); GC DNA AMPLIFICATION NEGATIVE (NEGATIVE)
== END ==
LOC: M SFHCLERA 10:54
DX: Z20.818 Contact with and (suspected) exposure to other bacterial communicable diseases (principal)
CPT/HCPCS: 87086

== ENCOUNTER → 2018-01-20 | Outpatient (REF) | payer OTHER ==
[2018-01-20 21:43] LABS: CHLAMYDIA DNA AMPLIFICATION NEGATIVE (NEGATIVE); GC DNA AMPLIFICATION NEGATIVE (NEGATIVE)
== END ==
LOC: M LAB REF 18:27
DX: R30.0 Dysuria (principal)
CPT/HCPCS: 87086

== ENCOUNTER → 2018-05-28 | Outpatient (REF) | payer MEDICAID ==
[2018-05-28 23:06] LABS: CHLAMYDIA DNA AMPLIFICATION NEGATIVE (NEGATIVE); GC DNA AMPLIFICATION NEGATIVE (NEGATIVE)
== END ==
LOC: M SFHCLERA 14:16
DX: R30.0 Dysuria (principal)

== ENCOUNTER → 2018-08-10 | Outpatient (REF) | payer OTHER ==
[2018-08-10 21:16] LABS: CHLAMYDIA DNA AMPLIFICATION NEGATIVE (NEGATIVE); GC DNA AMPLIFICATION NEGATIVE (NEGATIVE)
== END ==
LOC: M SFHCLERA 10:15
DX: R30.0 Dysuria (principal)

== ENCOUNTER → 2018-08-29 | Outpatient (REF) | payer OTHER ==
[2018-08-29 15:49] LABS: CHLAMYDIA DNA AMPLIFICATION NEGATIVE (NEGATIVE); GC DNA AMPLIFICATION NEGATIVE (NEGATIVE)
== END ==
LOC: M SFHCLERA 12:02
DX: N39.0 Urinary tract infection, site not specified (principal)

== ENCOUNTER → 2018-10-09 | Outpatient (REF) | payer OTHER ==
[~2018-10-09] MED LIST changes: +ZOFR4TAB14 PO; -ZOFR4TAB3 PO
[2018-10-09 23:02] LABS: CHLAMYDIA DNA AMPLIFICATION NEGATIVE (NEGATIVE); GC DNA AMPLIFICATION NEGATIVE (NEGATIVE)
== END ==
LOC: M SFHCLERA 10:45
PROVIDERS: ATTEND Physician Assistant
DX: N89.8 Other specified noninflammatory disorders of vagina (principal); Z11.3 Encounter for screening for infections with a predominantly sexual mode of transmission; N94.9 Unspecified condition associated with female genital organs and menstrual cycle

== ENCOUNTER → 2019-01-04 | Outpatient (REF) | payer OTHER ==
[2019-01-05 12:40] LABS: CHLAMYDIA DNA AMPLIFICATION NEGATIVE (NEGATIVE); GC DNA AMPLIFICATION NEGATIVE (NEGATIVE)
== END ==
LOC: M SFHCLERA 18:24
PROVIDERS: ATTEND Nurse Practitioner Family
DX: Z11.3 Encounter for screening for infections with a predominantly sexual mode of transmission (principal); N32.89 Other specified disorders of bladder